=== PATIENT | male | born 1955 | race Caucasian/White ===

== ENCOUNTER 2018-02-13 14:49 | Emergency (ER) | payer BC ==
[2018-02-13] MEDS ORDERED: Sodium Chloride 0.9% 1,000 ML IV ONE (15:21)
--- NOTE | 2018-02-13 15:28 | C.PDOC ---
History Of Present Illness 62 y/o male pt presents to the ER c/o pain s/p lithotripsy. Pt was sent by Dr. Foster. Pt reports he has pain, nausea and hematuria after the lithotripsy procedure by Dr. Foster. Kidney stone was 4 mm on the left side of the abdo men. Pt denies chills and vomiting. Time Seen by Provider: 02/13/18 14:58 Chief Complaint (Nursing): Back Pain History Per: Patient History/Exam Limitations: no limitations Onset/Duration Of Symptoms: Hrs Current Symptoms Are (Timing): Still Present Past Medical History Reviewed: Historical Data, Nursing Documentation, Vital Signs Vital Signs: Last Vital Signs Temp 98.2 F 02/13/18 15:02 Pulse 62 02/13/18 15:02 Resp 20 02/13/18 15:02 BP 99/74 L 02/13/18 15:02 Pulse Ox 100 02/13/18 15:02 - Medical History PMH: Kidney Stones - [facility] Procedures HEMORR CONTRL POST T & A (01/29/05) OTH EXCIS/DESTRUCION OF LESION/TISSUE OF PHARYNX (01/22/05) TONSILLECTOMY (01/22/05) Family History: States: No Known Family Hx - Social History Hx Alcohol Use: No Hx Substance Use: No Review Of Systems Except As Marked, All Systems Reviewed And Found Negative. Gastrointestinal: Positive for: Abdominal Pain (LLQ), Other (hematuria ) Physical Exam - Physical Exam Appears: Non-toxic, No Acute Distress Skin: Normal Color, Warm, Dry Head: Atraumatic, Normacephalic Chest: Symmetrical Cardiovascular: Rhythm Regular, No Murmur Respiratory: Normal Breath Sounds, No Rales, No Rhonchi, No Wheezing Gastrointestinal/Abdominal: Soft, Tenderness (LLQ ), No Distention, No Guarding, No Rebound Back: CVA Tenderness Extremity: Bilateral: Atraumatic, Normal Color And Temperature, Normal ROM Neurological/Psych: Oriented x3, Normal Speech ED Course And Treatment - Laboratory Results Result Diagrams: 02/13/18 15:28 02/13/18 15:28 O2 Sat by Pulse Oximetry: 100 (RA) Pulse Ox Interpretation: Normal - Physician Consult Information Time Consulting Physician Contacted: 14:27 Physician Contacted: Sahil Foster Outcome Of Conversation: Discuss case with Dr. Foster Medical Decision Making Medical Decision Making: Impression: LLQ abdominal pain s/p lithotripsy Plans: -- CT scan abd&pelvis -- Chem labs -- blood work -- pepcid -- IV fluids -- Zofran -- Toradol -- UA 182 - case discussed with Dr. Foster and okay to discharge patient home. Patient states improvement in pain. Disposition Counseled Patient/Family Regarding: Studies Performed, Diagnosis, Need For Followup, Rx Given - Disposition Referrals: Sahil Foster MD [Staff Provider] - Disposition: HOME/ ROUTINE Disposition Time: 18:26 Condition: STABLE Additional Instructions: follow up with urology within 2 days call to make an appointment continue your home medications return to ER if symptoms worsens or progress Prescriptions: Acetaminophen/Codeine [Tylenol/Codeine 300 MG/30 MG] 1 tab PO Q6H PRN #12 tab PRN Reason: Pain, Severe (8-10) Ondansetron ODT [Zofran ODT] 4 mg PO TID PRN #12 odt PRN Reason: Nausea/Vomiting Instructions: Renal Colic (DC) Forms: [employer] Connect ([place]), General Discharge Instructions - Clinical Impression Clinical Impression: Renal colic - Scribe Statement The provider has reviewed the documentation as recorded by the Ririibmu Wright Do Provider Attestation: All medical record entries made by the Scribe were at my direction and personally dictated by me. I have reviewed the chart and agree that the record accurately reflects my personal performance of the history, physical exam, medical decision making, and the department course for this patient. I have also personally directed, reviewed, and agree with the discharge instructions and disposition.
[2018-02-13 15:32] LABS: BASO % 0.3 % (0.0-2.0); EOS # 0.2 K/uL (0.0-0.7); EOS % 2.1 % (0.0-4.0); HEMOGLOBIN 14.9 g/dL (12.0-18.0); LYMPH # 1.2 K/uL (1.0-4.3); LYMPH % 13.6 % (20.0-40.0); MEAN CORPUSCULAR HEMOGLOBIN 30.5 pg (27.0-31.0); MEAN CORPUSCULAR HGB CONC 33.9 g/dL (33.0-37.0); MEAN PLATELET VOLUME 7.4 fL (7.2-11.7); MONO # 0.7 K/uL (0.0-0.8); MONO % 8.4 % (0.0-10.0); NEUT # 6.7 K/uL (1.8-7.0); NEUT % 75.6 % (50.0-75.0); RBC 4.87 Mil/uL (4.40-5.90); RED CELL DISTRIBUTION WIDTH 13.2 % (11.5-14.5); WHITE BLOOD COUNT 8.9 K/uL (4.8-10.8)
[2018-02-13 15:37] LABS: URINE BILIRUBIN NEGATIVE (NEGATIVE); URINE BLOOD 3+ (NEGATIVE); URINE CLARITY Clear (Clear); URINE COLOR Red (YELLOW); URINE GLUCOSE (UA) NORMAL (Normal); URINE LEUKOCYTE ESTERASE NEG Leu/uL (Negative); URINE PROTEIN 2+ mg/dL (NEGATIVE); URINE UROBILINOGEN NORMAL mg/dL (0.2-1.0)
[2018-02-13 16:42] LABS: ALB/GLOB RATIO 1.5 (1.0-2.1); ALBUMIN 4.5 g/dL (3.5-5.0); ALT/SGPT 29 U/L (21-72); AST/SGOT 36 U/L (17-59); BLOOD UREA NITROGEN 17 mg/dL (9-20); CALCIUM 9.5 mg/dl (8.6-10.4); GFR NON-AFRICAN AMERICAN > 60; LIPASE 149 U/L (23-300)
[2018-02-13 17:27] VITALS: BP 126/75; PULSE 87; RESP 14; TEMP 98.9
--- NOTE | 2018-02-13 18:12 | CT ---
PROCEDURE: CT Abdomen and Pelvis without Oral or IV contrast. HISTORY: abd pain COMPARISON: None available. TECHNIQUE: Contiguous axial images of the abdomen and pelvis. No oral or IV contrast administered. Coronal and Sagittal reformats generated and reviewed. Radiation dose: Total exam DLP = 1054.67 mGy-cm. This CT exam was performed using one or more of the following dose reduction techniques: Automated exposure control, adjustment of the mA and/or kV according to patient size, and/or use of iterative reconstruction technique. FINDINGS: There is limited evaluation of the solid organs without the administration of IV contrast. LOWER THORAX: Mild bibasilar atelectasis. No visible pleural effusion or pneumothorax. LIVER: Unremarkable unenhanced appearance. GALLBLADDER AND BILE DUCTS: Cholecystectomy. PANCREAS: Unremarkable unenhanced appearance. SPLEEN: Unremarkable unenhanced appearance. ADRENALS: Unremarkable unenhanced appearance. KIDNEYS AND URETERS: Left-sided hydroureter/hydronephrosis. Tiny hyperdense foci consistent with calculi measuring less than 2 mm noted in the left renal pelvis. No obstructing calculus evident along the ureteral course. 9 mm exophytic hypodense right mid to lower pole mass, possibly cyst. BLADDER: Mildly thick-walled urinary bladder likely exaggerated by under distension. REPRODUCTIVE: Prostate gland measures approximately 3.9 x 4.7 cm. APPENDIX: The appendix appears within normal limits of caliber. No secondary signs of acute appendicitis. BOWEL: The stomach is nondistended. Lack of oral contrast limits evaluation for bowel pathology. The bowel loops appear within normal limits of caliber without evidence of intestinal obstruction. Anastomotic bowel suture material at the rectosigmoid colon. PERITONEUM: No significant free fluid. No definite free air. LYMPH NODES: No bulky lymphadenopathy identified. VASCULATURE: No significant atherosclerotic calcification of the aorta noted. No aortic aneurysm. BONES: Multilevel degenerative changes. Scoliosis. OTHER FINDINGS: Small bilateral fat containing inguinal hernias. IMPRESSION: Left-sided hydroureter/hydronephrosis. Tiny hyperdense foci consistent with calculi measuring less than 2 mm noted in the left renal pelvis. No obstructing calculus evident along the ureteral course. 9 mm exophytic hypodense right mid to lower pole mass, possibly cyst. If indicated, consider ultrasound for further evaluation. Additional findings as above.
[2018-02-13 18:26] VITALS: O2SAT 100
== END 2018-02-13 18:58 | disposition home or self-care (01) ==
LOC: C.ER 14:49
DX: N23 Unspecified renal colic (principal)
CPT/HCPCS: 74176; 80053; 81001; 83690; 85025; 96361; 96374; 96375; 99285; J1885; J2405; J7030